=== PATIENT | female | born 2005 | race Caucasian/White ===

== ENCOUNTER 2024-03-02 01:12 | Emergency (ER) | payer MEDICAID ==
[~2024-03-02] VITALS: Ht 167.6 cm; Wt 60.0 kg
[2024-03-02 01:40] VITALS: BP 132/87; PULSE 103; RESP 20; TEMP 97.7; O2SAT 97
[2024-03-02 02:27] LABS: CHLORIDE 106 mEq/L (98-107); POTASSIUM 3.6 mEq/L (3.5-5.1); SODIUM 138 mEq/L (136-145)
[2024-03-02 02:29] LABS: CALCIUM 9.2 mg/dL (8.7-10.4); CARBON DIOXIDE 26 mEq/L (21-32)
[2024-03-02 02:34] LABS: CREATININE 0.5 mg/dL (0.6-1.0); GLUCOSE 88 mg/dL (70-105); UREA NITROGEN BLOOD 6 mg/dL (9-23)
[2024-03-02 02:36] LABS: ALANINE AMINOTRANSFERASE 29 IU/L (10-49); ASPARTATE AMINOTRANSFERASE 29 IU/L (<34); BILIRUBIN DIRECT 0.2 mg/dL (<=3.0); BILIRUBIN TOTAL 0.6 mg/dL (0.1-1.0); PROTEIN TOTAL 6.5 g/dL (6.0-8.3)
[2024-03-02 02:43] LABS: BASOPHILS % 0.3 % (0.0-2.0); EOSINOPHILS % 0.9 % (0.0-5.0); HEMATOCRIT. 33.8 % (36.0-48.0); HEMOGLOBIN. 11.6 g/dL (12.0-16.0); LYMPHOCYTES % 39.5 % (20.0-50.0); MEAN CORPUSCULAR HEMOGLOBIN 30.8 pg (28.0-32.0); MEAN CORPUSCULAR HGB CONC 34.4 g/dL (31.0-37.0); MEAN CORPUSCULAR VOLUME 89.7 fL (81.0-99.0); MEAN PLATELET VOLUME 6.5 fl (7.4-10.4); MONOCYTES % 6.9 % (2.0-8.0); NEUTROPHILS % 52.4 % (40.0-76.0); PLATELET 337 x1000/uL (130-400); RED BLOOD CELL COUNT 3.77 mill/uL (4.2-5.4); RED CELL DISTRIBUTION WIDTH 15.5 % (11.6-14.6); WHITE BLOOD COUNT 7.5 x1000/uL (4.5-11.0)
[2024-03-02 02:44] LABS: HCG SCREEN NEGATIVE
[2024-03-02] MEDS: ONDANSETRON HCL 4MG/2ML INJ IV ONE (02:50)
[2024-03-02] MEDS: SODIUM CHLORIDE 0.9% 1,000 ML IV ONE (02:50)
[2024-03-02] MEDS: MORPHINE SULFATE 4 MG/ML INJ (FOR IV/IM USE) IV ONE (02:50)
[2024-03-02] MEDS: IOHEXOL-300 100 ML BOTTLE ONE (04:18)
[2024-03-02] MEDS ORDERED: IBUP-2028 MT (04:36)
[2024-03-02] MEDS: ACETAMINOPHEN 1000MG/100ML 100 ML IV ONE (06:16)
== END 2024-03-02 06:46 | disposition home or self-care (01) ==
LOC: ER 01:12
DX: G89.18 Other acute postprocedural pain (principal); Z00.00 Encounter for general adult medical examination without abnormal findings
CPT/HCPCS: 80076; 80048; 84703; 83690; 85025; 36415; 74177; 96361; 96365; 96375; 99285; Q9967; J2405; J2270; J7030; Z7610 ×2; J0131

== ENCOUNTER 2024-03-29 18:14 | Emergency (ER) | payer MEDICAID ==
[~2024-03-29] VITALS: Ht 167.6 cm; Wt 57.9 kg
[~2024-03-29 18:14] MED LIST: IBUP-2028 MT
[2024-03-29 18:29] VITALS: BP 113/58; PULSE 85; RESP 16; TEMP 98.3; O2SAT 100
[2024-03-29] MEDS: ONDANSETRON HCL 4MG/2ML INJ IV STA (21:23)
[2024-03-29 22:19] LABS: BASOPHILS % 0.6 % (0.0-2.0); EOSINOPHILS % 2.1 % (0.0-5.0); HEMOGLOBIN. 13.2 g/dL (12.0-16.0); LYMPHOCYTES % 36.1 % (20.0-50.0); MEAN CORPUSCULAR HEMOGLOBIN 29.6 pg (28.0-32.0); MEAN CORPUSCULAR HGB CONC 32.9 g/dL (31.0-37.0); MEAN CORPUSCULAR VOLUME 89.9 fL (81.0-99.0); MEAN PLATELET VOLUME 6.6 fl (7.4-10.4); MONOCYTES % 7.4 % (2.0-8.0); NEUTROPHILS % 53.8 % (40.0-76.0); PLATELET 343 x1000/uL (130-400); RED BLOOD CELL COUNT 4.45 mill/uL (4.2-5.4); WHITE BLOOD COUNT 6.9 x1000/uL (4.5-11.0)
[2024-03-29 22:47] LABS: HCG SCREEN NEGATIVE
[2024-03-30 00:07] LABS: CHLORIDE 103 mEq/L (98-107); POTASSIUM 4.1 mEq/L (3.5-5.1); SODIUM 138 mEq/L (136-145)
[2024-03-30 00:08] LABS: CARBON DIOXIDE 24 mEq/L (21-32)
[2024-03-30 00:13] LABS: CREATININE 0.7 mg/dL (0.6-1.0); GLUCOSE 79 mg/dL (70-105); UREA NITROGEN BLOOD 12 mg/dL (9-23)
[2024-03-30 00:15] LABS: ALANINE AMINOTRANSFERASE 30 IU/L (10-49); ALBUMIN 4.8 g/dL (3.2-4.8); ASPARTATE AMINOTRANSFERASE 26 IU/L (<34); BILIRUBIN TOTAL 0.6 mg/dL (0.1-1.0); PROTEIN TOTAL 7.8 g/dL (6.0-8.3)
[2024-03-30] MEDS ORDERED: PANT20TA17 MT (02:03)
[2024-03-30] MEDS: ONDANSETRON HCL 4MG/2ML INJ IV NR (02:16)
[2024-03-30] MEDS: KETOROLAC 30MG/ML VIAL IV STA (02:19)
[2024-03-30] MEDS: PANTOPRAZOLE SODIUM 40 MG/VIAL IV NR (02:21)
[2024-03-30] MEDS: KETOROLAC 30MG/ML VIAL IV NR (02:27)
[2024-03-30] MEDS: PANTOPRAZOLE SODIUM 40 MG/VIAL IV ONE (02:27)
[2024-03-30] MEDS: IOHEXOL-300 100 ML BOTTLE ONE (02:27)
[2024-03-30] MEDS: SODIUM CHLORIDE 0.9% 1,000 ML IV ONE (02:45)
[2024-03-30 03:11] LABS: CLARITY URINE CLEAR (CLEAR); COLOR URINE YELLOW (YELLOW); GLUCOSE URINE NEGATIVE (NEGATIVE); KETONES URINE NEGATIVE (NEGATIVE); LEUKOCYTE ESTERASE URINE TRACE (NEGATIVE); NITRITE URINE POSITIVE (NEGATIVE); OCCULT BLOOD URINE NEGATIVE (NEGATIVE); PH URINE 6.5 (4.5-8.0); PROTEIN URINE TRACE (NEGATIVE); SPECIFIC GRAVITY URINE 1.068 (1.005-1.030)
[2024-03-30] MEDS: CEFTRIAXONE 1GM/50ML 50 ML IV ONE (03:44)
[2024-03-30] MEDS ORDERED: CEPH500C2 MT (04:03)
[2024-03-30 05:45] LABS: SQUAMOUS EPITHELIAL CELL URINE 1+ /lpf (RARE/1+)
[2024-03-30 05:47] LABS: BACTERIA URINE 4+; RBC URINE 0-2 /hpf (0-2)
== END 2024-03-30 04:27 | disposition home or self-care (01) ==
LOC: ER 18:14
DX: K92.1 Melena (principal); N39.0 Urinary tract infection, site not specified; Z90.49 Acquired absence of other specified parts of digestive tract
CPT/HCPCS: 80053; 84703; 83690; 85025; 36415; 99285; 81003; 74177; 96361; 96365; 96375; Q9967; J0696; J1885; J2405; J2470; J7030; Z7610